=== PATIENT | female | born 1960 | race Caucasian/White ===

== ENCOUNTER 2017-09-11 07:34 | Day surgery (SDC) | payer OTHER ==
[2017-09-10 15:14] VITALS: BMI 28.7
[2017-09-11 08:00] VITALS: TEMP 98
[2017-09-11] MEDS ORDERED: LIDOCAINE HCL 1%, 10 MG/ML (20ML VIAL) ONE (08:43)
[2017-09-11] MEDS ORDERED: LIDOCAINE HCL 1%, 10 MG/ML (20ML VIAL) INF ONE (09:41)
[2017-09-11 10:57] VITALS: BP 132/93; PULSE 64
--- NOTE | 2017-09-12 07:03 | OP ---
DATE OF OPERATION: 09/11/2017 PREOPERATIVE DIAGNOSIS: Left breast mass. POSTOPERATIVE DIAGNOSIS: Left breast mass. PROCEDURE: Excision of left breast mass. SURGEON: Maria Eugenia Nails MD ANESTHESIA: Local. COMPLICATIONS: None. ESTIMATED BLOOD LOSS: Minimal. DISPOSITION: Stable. INDICATIONS FOR PROCEDURE: Patient presented with a palpable mass that was tender and slightly red. I treated with antibiotic which resolved significant. However, it continued, and we discussed an excision. The procedure was discussed with all the questions answered. PROCEDURE IN DETAIL: Patient was brought to [facility] in [place] and taken into the operating room, and after, the left breast was prepped in the usual sterile fashion. Lidocaine 1% without epinephrine was used as local anesthesia. An ellipse of skin was taken to include the fluctuant part of the nodule in the lower outer left breast. This was excised en bloc, tacked, sent to Pathology for permanent section. Hemostasis was assured with electrocautery. The incision closed with interrupted 3-0 Vicryl, running 4-0 Monocryl. A sterile dressing with Tegaderm and 4x4s was applied. She tolerated the procedure well, was taken, and left the operating room in good condition. MARIA EUGENIA NAILS M.D. [id number]
--- NOTE | 2017-09-14 13:24 | PATH ---
Surgical Pathology Report Patient Name: CAROLINE HASKINS [facility]. Rec. #: [id number] /Age/Gender: 1960 (Age: 57) / F Account: [id number] Location: [facility] SURGICAL Taken: 09/11/2017 Received: 09/11/2017 Reported: 09/14/2017 Physicians: Maria Eugenia Cueva M.D. Specimen(s) Received EXCISION OF MASS LEFT BREAST Clinical History Palpable mass, questioning epidermal cyst Final Diagnosis SKIN, LEFT BREAST, EXCISION: RUPTURED EPIDERMAL INCLUSION CYST (KERATINOUS CYST). Electronically Signed Ben Fox M.D. Gross Description Received in formalin labeled "mass left breast," is a 2.4 x 2.0 x 2.0 cm unoriented portion of fibroadipose tissue which is surfaced by a 2.2 x 1.1 cm shultz, elliptical, unremarkable portion of skin. There is no needle localization wire present. Also received within the same container are 2 shultz, unoriented skin shaves measuring 0.9 x 0.3 cm and 1.4 x 0.7 cm. The epidermal surfaces are unremarkable. Sectioning of the fibroadipose tissue displays a possible cyst. [employer] sections are submitted in 3 cassettes as follows: 5-7-xutrdvoe cyst; 3-sections from separately received skin shaves. 09/11/201709/11/2017
== END 2017-09-11 10:59 | disposition home or self-care (01) ==
LOC: JASU-SURG 07:34
PROVIDERS: ATTEND Surgery
PROC: 0HBU0ZX Excision of Left Breast, Open Approach, Diagnostic (ICD-10-PCS; principal; 2017-09-11 09:00)
DX: N60.02 Solitary cyst of left breast (principal)
CPT/HCPCS: 88304-TC